=== PATIENT | male | born 1935 | race Hispanic/Latino ===

== ENCOUNTER 2019-05-03 12:18 | Outpatient (CLI) | payer MEDICARE, MEDICAID ==
--- NOTE | 2019-05-03 13:36 | MRI ---
MRI Cervical Spine WO Con History: Bilateral hand numbness. 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 No cervical adenopathy. No marrow infiltrative process. Cerebellar tonsils terminate at level of the foramen magnum. Cord signal is normal. Prevertebral soft tissues are normal. Levels are as follows: C2/C3: Mild is a process hypertrophy. Mild right facet arthrosis. No neural foraminal or spinal canal narrowing. C3/C4: Mild disc desiccation. Small bilateral subforaminal posterior disc osteophyte complexes. Mild facet arthropathy. Moderate left and mild right neural foraminal narrowing. C4/C5: Moderate degenerative disc space height loss. Circumferential disc bulge greatest in the right lateral recess and subforaminal zone. Uncinate process hypertrophy. There is effacement of the ventral CSF space with the spinal canal measuring approximate the 9 mm. Moderate right and mild left neural foraminal narrowing. C5/C6: There is degenerative disc space height loss. There is 2 mm retrolisthesis. Mild facet arthrop athy. Circumferential disc bulge. Spinal canal measures approximately 9 mm. Moderate bilateral neural foraminal narrowing. C6/C7: Circumferential disc bulge. Mild facet arthrosis. Effacement of ventral CSF space. Spinal waldo l measures approximately 9 mm. Moderate left and mild right neural foraminal narrowing. C7/T1: Mild degenerative anterior disc space height loss. Mild facet arthropathy. No neural foraminal or spinal canal narrowing. Impression: Moderate degenerative disease as described with multilevel neural foraminal and spinal ca nal narrowing.
== END 2019-05-03 12:19 | disposition home or self-care (01) ==
LOC: MRI 12:18
PROVIDERS: ATTEND Neurological Surgery
DX: M47.12 Other spondylosis with myelopathy, cervical region (principal); M48.02 Spinal stenosis, cervical region
CPT/HCPCS: 72141

== ENCOUNTER 2019-06-20 05:51 | Day surgery (SDC) | payer MEDICARE, MEDICAID ==
[2019-06-19 15:28] VITALS: BMI 35.3
[2019-06-20] MEDS ORDERED: ceFAZolin Sodium (SDC) 2 GM/100 ML BAG ONE (06:10)
[2019-06-20 07:04] LABS: #Basophils 0.1 thou/uL (0.0-0.2); #Eosinphils 0.6 thou/uL (0.0-0.7); #Lymphocytes 1.4 thou/uL (1.20-3.40); #Monocytes 0.6 thou/uL (0.11-0.59); #Neutrophils 7.1 thou/uL (1.40-6.50); %Basophils 0.7 % (0.0-1.0); %Eosinophils 6.3 % (0.0-10.0); %Lymphocytes 13.8 % (21.0-51.0); %Monocytes 6.2 % (0.0-10.0); %Neutrophils 73.1 % (42.0-75.0); Mean Corpuscular HGB CONC 34.2 g/dL (32.0-36.0); Mean Corpuscular Hemoglobin 31.2 pg (27.0-31.0); Mean Corpuscular Volume 91.1 fL (78.0-98.0); Mean Platelet Volume 7.7 fL (7.4-10.4); Platelet Count 240 thou/uL (130-400); RBC Distribution Width 13.6 % (11.5-14.5); Red Blood Cell (RBC) Count 4.17 mill/uL (4.70-6.10); White Blood Cell (WBC) Count 9.8 thou/uL (4.8-10.8)
[2019-06-20] MEDS ORDERED: hydrALAZINE 20 MG/ML VIAL ONE (07:06)
[2019-06-20] MEDS ORDERED: Lidocaine 1% (PF) 30 ML VIAL ONE (07:09)
[2019-06-20] MEDS ORDERED: Fentanyl 100 MCG/2 ML VIAL ONE (07:58)
--- NOTE | 2019-06-20 09:51 | OP ---
DATE OF PROCEDURE: 06/20/2019 PREOPERATIVE DIAGNOSIS: Right carpal tunnel syndrome. POSTOPERATIVE DIAGNOSIS: Right carpal tunnel syndrome. PROCEDURES PERFORMED: 1. Right open carpal tunnel release. 2. Placement of short volar splint right upper extremity. 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 ANESTHESIA: The patient had a general anesthetic. DISPOSITION: He went to recovery room in stable condition. COMPLICATIONS: No complications. INDICATIONS: This is an 83-year-old male, who has significant problems with numbness and tingling in his hands and is beginning to lose the ability to use his hands for fine manipulation. At this time, carpal tunnel syndrome was confirmed with an EMG/NCV and he opted to have surgery. DESCRIPTION OF PROCEDURE: After all appropriate consent forms were explained and signed, the patient was taken back to the operating room and at this time was given IV sedation. A well-padded tourniquet was placed on the right arm and the arm was then prepped and draped in the standard surgical fashion. The incision was then drawn out and infiltrated with plain lidocaine. Limb was exsanguinated and tourniquet taken up to 250 mmHg. At this time, using Loupe magnification, a 15 blade was used to incise down through skin. Bipolar cautery was used to coagulate any brisk venous bleeding. We then placed a small hemostat to protect the underlying median nerve and transected the transverse carpal ligament using multiple 15 blades as well as scissors. Once this was done, a small finger was inserted to palpate for any remaining bands. At this time, a moist Ray-Anna sponge was placed into the wound. Tourniquet was let down and pressure was held. Bipolar cautery used to coagulate any brisk venous bleeding. The wound was then irrigated with saline solution and we then evaluated the nerve. The nerve was found to be significantly injected, the nerve was intact, there were no masses noted, and the underlying flexor tendons were in good condition. At this time, we irrigated and dried the wound. We then placed multiple nylon stitches to close the incision. A bulky sterile hand dressing and a small volar splint were then placed. The patient was then awakened and taken to recovery in stable condition. All counts were correct at the end of the case. The patient received preoperative IV antibiotics. Job ID: [id number]
[2019-06-20] MEDS ORDERED: Ondansetron PF 4 MG/2 ML Vial ONE (17:03)
[2019-06-20] MEDS ORDERED: Dexamethasone 20 MG/5 ML VIAL ONE (17:03)
[2019-06-20] MEDS ORDERED: Labetalol HCl 100 MG/20 ML VIAL ONE (17:03)
[2019-06-20] MEDS ORDERED: PROPOFOL 200 MG/20 ML VIAL ONE (17:03)
[2019-06-20] MEDS ORDERED: ePHEDrine 50 MG/ML VIAL ONE (17:03)
[2019-06-20] MEDS ORDERED: Lidocaine 1% PF 5 ML VIAL ONE (17:03)
== END 2019-06-20 12:35 | disposition home or self-care (01) ==
LOC: SDC 05:51
PROVIDERS: ATTEND Orthopaedic Surgery
PROC: 01N50ZZ Release Median Nerve, Open Approach (ICD-10-PCS; principal; 2019-06-20)
DX: G56.01 Carpal tunnel syndrome, right upper limb (principal); G56.21 Lesion of ulnar nerve, right upper limb; I10 Essential (primary) hypertension; E78.00 Pure hypercholesterolemia, unspecified; E11.9 Type 2 diabetes mellitus without complications; M19.90 Unspecified osteoarthritis, unspecified site; Z79.899 Other long term (current) drug therapy; Z87.891 Personal history of nicotine dependence
CPT/HCPCS: 85025; J0360; J0690; J1100; J2001; J2405; J2704; J3010; J3490

== ENCOUNTER 2019-11-08 06:10 | Day surgery (SDC) | payer MEDICARE, MEDICAID ==
[2019-11-07 14:50] VITALS: BMI 32.9
[2019-11-08] MEDS ORDERED: Midazolam HCl 2 mg/2 ml Vial ONE (06:41)
[2019-11-08] MEDS ORDERED: Fentanyl 100 MCG/2 ML VIAL ONE (06:41)
[2019-11-08] MEDS ORDERED: Heparin (Artline) 1,000 ML ONE (06:41)
[2019-11-08 06:57] LABS: Prothrombin Time 13.5 SEC (12.0-14.7)
[2019-11-08 07:09] LABS: Anion Gap 10 mmol/L (10-20); BUN (Urea Nitrogen) 13 mg/dL (8.4-25.7); Calc. Creatinine Clearance 56 mL/min (70-130); Carbon Dioxide 36 mmol/L (23-31); Chloride 96 mmol/L (98-107); Estimated GFR-MDRD 55; Sodium 140 mmol/L (136-145)
[2019-11-08 07:10] LABS: ALT (SGPT) 8 U/L (8-55); AST (SGOT) 11 U/L (5-34); Albumin 3.6 g/dL (3.4-4.8); Alkaline Phosphatase 94 U/L (40-110); Bilirubin, Total 0.9 mg/dL (0.2-1.2); Calcium 9.2 mg/dL (7.8-10.44); Globulin 3.6 g/dL (2.4-3.5); Glucose 140 mg/dL (83-110); Protein, Total 7.2 g/dL (5.8-8.1)
[2019-11-08 07:13] LABS: Potassium 2.4 mmol/L (3.5-5.1)
[2019-11-08] MEDS ORDERED: Potassium Chloride 20 MEQ TAB PO SCH (07:30)
[2019-11-08] MEDS ORDERED: hydrALAZINE 20 MG/ML VIAL ONE (09:46)
[2019-11-08] MEDS ORDERED: Iopamidol 370 76% 100 ML VIAL ONE (13:12)
== END 2019-11-08 13:30 | disposition home or self-care (01) ==
LOC: SDC 06:10
PROVIDERS: ATTEND Internal Medicine Cardiovascular Disease
PROC: 4A023N7 Measurement of Cardiac Sampling and Pressure, Left Heart, Percutaneous Approach (ICD-10-PCS; principal; 2019-11-08)
PROC: B2111ZZ Fluoroscopy of Multiple Coronary Arteries using Low Osmolar Contrast (ICD-10-PCS; 2019-11-08)
DX: I25.10 Atherosclerotic heart disease of native coronary artery without angina pectoris (principal); I10 Essential (primary) hypertension; I49.5 Sick sinus syndrome; I35.1 Nonrheumatic aortic (valve) insufficiency; E11.9 Type 2 diabetes mellitus without complications; E78.5 Hyperlipidemia, unspecified; Z79.899 Other long term (current) drug therapy; Z87.891 Personal history of nicotine dependence
CPT/HCPCS: 80053; 85610; 85730; 93458; C1769; 36415; 99152; J0360; J1644; J2250; J3010; Q9967

== ENCOUNTER 2022-09-03 12:04 | Outpatient (CLI) | payer OTHER | END 2022-09-03 12:05 | disposition home or self-care (01) | LOC: DTY/OP 12:04 | PROVIDERS: ATTEND Family Medicine | DX: I12.9 Hypertensive chronic kidney disease with stage 1 through stage 4 chronic kidney disease, or unspecified chronic kidney disease (principal); E11.22 Type 2 diabetes mellitus with diabetic chronic kidney disease; N18.32 Chronic kidney disease, stage 3b; I25.10 Atherosclerotic heart disease of native coronary artery without angina pectoris; E79.0 Hyperuricemia without signs of inflammatory arthritis and tophaceous disease; M10.9 Gout, unspecified | CPT/HCPCS: 97802 ==

== ENCOUNTER 2023-02-24 17:49 | Observation (INO) | payer OTHER ==
[2023-02-24] MEDS ORDERED: Aspirin Chewable 81 MG TAB ONE (18:32)
[2023-02-24 18:49] LABS: #Basophils 0.1 thou/uL (0.0-0.2); #Eosinphils 0.3 thou/uL (0.0-0.7); #Lymphocytes 1.3 thou/uL (1.20-3.40); #Monocytes 0.6 thou/uL (0.11-0.59); #Neutrophils 6.8 thou/uL (1.40-6.50); %Basophils 0.6 % (0.0-1.0); %Eosinophils 3.2 % (0.0-10.0); %Lymphocytes 14.7 % (21.0-51.0); %Monocytes 6.5 % (0.0-10.0); %Neutrophils 75.1 % (42.0-75.0); Hemoglobin 14.6 g/dL (14.0-18.0); Mean Corpuscular HGB CONC 32.8 g/dL (32.0-36.0); Mean Corpuscular Hemoglobin 31.3 pg (27.0-31.0); Mean Corpuscular Volume 95.5 fl (78.0-98.0); Mean Platelet Volume 7.9 fL (7.4-10.4); Platelet Count 234 10x3/uL (130-400); Red Blood Cell (RBC) Count 4.67 mill/uL (4.70-6.10)
[2023-02-24 19:34] LABS: Albumin 3.7 g/dL (3.4-4.8)
[2023-02-24 19:39] LABS: Chloride 100 mmol/L (98-107); Potassium 4.2 mmol/L (3.5-5.1); Sodium 134 mmol/L (136-145)
[2023-02-24 19:51] LABS: ALT (SGPT) 14 U/L (8-55); AST (SGOT) 27 U/L (5-34); Alkaline Phosphatase 88 U/L (40-110); Anion Gap 14 mmol/L (10-20); BUN (Urea Nitrogen) 20 mg/dL (8.4-25.7); Bilirubin, Total 0.3 mg/dL (0.2-1.2); CK (CPK) 49 U/L (30-200); Calc. Creatinine Clearance 0 mL/min (70-130); Calcium 9.2 mg/dL (7.8-10.44); Carbon Dioxide 24 mmol/L (23-31); Estimated GFR 53; Globulin 4.4 g/dL (2.4-3.5); Glucose 132 mg/dL (83-110); Lipase 32 U/L (8-78); Protein, Total 8.1 g/dL (5.8-8.1)
[2023-02-24] MEDS ORDERED: Ondansetron PF 4 MG/2 ML Vial IVP PRN (21:29)
[2023-02-24] MEDS ORDERED: Calcium Carbonate 500 MG ChewTAB PO PRN (21:29)
[2023-02-24] MEDS ORDERED: Ondansetron ODT 4 MG TAB PO PRN (21:29)
[2023-02-24] MEDS ORDERED: Senokot S 8.6-50 MG TAB PO PRN (21:29)
[2023-02-24] MEDS ORDERED: Acetaminophen 325 MG TAB PO PRN (21:29)
[2023-02-24] MEDS ORDERED: hydrALAZINE 20 MG/ML VIAL SLOW IVP PRN (21:33)
[2023-02-24] MEDS ORDERED: HumaLOG 300 UNITS/3 ML VIAL SC PRN ×2 (21:42)
[2023-02-24] MEDS ORDERED: Dextrose 5% in Water 1,000 ML IV PRN (21:42)
[2023-02-24] MEDS ORDERED: Dextrose 50% Abboject 50 ML SYRINGE SLOW IVP PRN (21:42)
[2023-02-24 23:23] VITALS: BMI 35.9
[2023-02-24 23:36] LABS: Troponin I 0.014 ng/mL (< 0.028)
[2023-02-25 02:41] LABS: Hemoglobin A1c 5.9 % (4.0-6.0)
[2023-02-25 02:51] LABS: #Eosinphils 0.3 thou/uL (0.0-0.7); #Lymphocytes 1.2 thou/uL (1.20-3.40); #Monocytes 0.6 thou/uL (0.11-0.59); #Neutrophils 5.7 thou/uL (1.40-6.50); %Basophils 0.4 % (0.0-1.0); %Eosinophils 4.3 % (0.0-10.0); %Lymphocytes 15.4 % (21.0-51.0); %Neutrophils 72.9 % (42.0-75.0); Hemoglobin 13.3 g/dL (14.0-18.0); Mean Corpuscular HGB CONC 32.9 g/dL (32.0-36.0); Mean Corpuscular Hemoglobin 30.9 pg (27.0-31.0); Mean Corpuscular Volume 93.9 fl (78.0-98.0); Mean Platelet Volume 8.8 fL (7.4-10.4); Platelet Count 148 10x3/uL (130-400); RBC Distribution Width 14.1 % (11.5-14.5); White Blood Cell (WBC) Count 7.8 10x3/uL (4.8-10.8)
[2023-02-25 03:04] LABS: Troponin I Less than 0.010 ng/mL (< 0.028)
[2023-02-25 03:13] LABS: ALT (SGPT) 12 U/L (8-55); AST (SGOT) 25 U/L (5-34); Albumin 3.1 g/dL (3.4-4.8); Alkaline Phosphatase 78 U/L (40-110); Anion Gap 13 mmol/L (10-20); BUN (Urea Nitrogen) 19 mg/dL (8.4-25.7); Bilirubin, Total 0.3 mg/dL (0.2-1.2); Calc. Creatinine Clearance 53 mL/min (70-130); Calcium 8.6 mg/dL (7.8-10.44); Carbon Dioxide 22 mmol/L (23-31); Cardiac Risk 3.6 (Less than 4.5); Chloride 104 mmol/L (98-107); Cholesterol 121 mg/dl (< 200 Desired); Estimated GFR 53; Globulin 3.9 g/dL (2.4-3.5); Glucose 131 mg/dL (83-110); HDL Cholesterol 34 mg/dL (>60 Neg Risk); LDL Cholesterol, Calculated 74 mg/dL; Sodium 135 mmol/L (136-145); Triglycerides 63 mg/dL (Less than 150)
[2023-02-25] MEDS ORDERED: Aspirin 81 mg Enteric Coated Tablet PO SCH (09:00)
[2023-02-25] MEDS ORDERED: Famotidine 20 MG TAB PO SCH (09:00)
[2023-02-25] MEDS ORDERED: Pantoprazole 40 MG GRANULES PACKET PO SCH (09:00)
[2023-02-25] MEDS ORDERED: hydrALAZINE 25 MG TAB PO SCH (09:00)
[2023-02-25] MEDS ORDERED: Oxybutynin ER 5 MG TAB PO SCH (09:00)
[2023-02-25] MEDS ORDERED: Atorvastatin Calcium 10 MG TAB PO SCH (09:00)
[2023-02-25] MEDS ORDERED: Furosemide 20 MG/2 ML VIAL SLOW IVP SCH (09:00)
[2023-02-25 13:03] LABS: SARS-CoV-2 NAA Rapid Test DETECTED (NotDetected)
[2023-02-25 15:29] VITALS: BP 142/76; TEMP 98.5
== END 2023-02-25 19:45 | disposition home or self-care (01) ==
LOC: ERS 17:49 → SUATTDRO 17:49 → 2SW 21:34
PROVIDERS: ADMIT Internal Medicine; ATTEND Internal Medicine
DX: R07.89 Other chest pain (principal); R06.09 Other forms of dyspnea; I12.9 Hypertensive chronic kidney disease with stage 1 through stage 4 chronic kidney disease, or unspecified chronic kidney disease; E11.22 Type 2 diabetes mellitus with diabetic chronic kidney disease; N18.9 Chronic kidney disease, unspecified; E78.5 Hyperlipidemia, unspecified; I25.10 Atherosclerotic heart disease of native coronary artery without angina pectoris; I49.5 Sick sinus syndrome; U07.1 COVID-19; M19.90 Unspecified osteoarthritis, unspecified site; I08.1 Rheumatic disorders of both mitral and tricuspid valves; N40.1 Benign prostatic hyperplasia with lower urinary tract symptoms; R39.15 Urgency of urination; R35.0 Frequency of micturition; Z87.11 Personal history of peptic ulcer disease; Z87.891 Personal history of nicotine dependence; Z79.84 Long term (current) use of oral hypoglycemic drugs; Z79.899 Other long term (current) drug therapy; Z95.0 Presence of cardiac pacemaker
CPT/HCPCS: 71045; 80053 ×2; 80061; 82550; 82962 ×2; 83036; 83690; 83880; 84484 ×3; 85025 ×2; 87040; 87086; 87633; 93005; 93306; 99285; U0002; 36415; 36416; 96372; 96374; G0378; J1650; J1940

== ENCOUNTER 2023-03-25 15:17 | Outpatient (CLI) | payer OTHER | END 2023-03-25 15:18 | disposition home or self-care (01) | LOC: CT 15:17 | PROVIDERS: ATTEND Internal Medicine Cardiovascular Disease | DX: I71.21 Aneurysm of the ascending aorta, without rupture (principal); I70.0 Atherosclerosis of aorta; J84.10 Pulmonary fibrosis, unspecified; R91.8 Other nonspecific abnormal finding of lung field | CPT/HCPCS: 71250 ==

== ENCOUNTER 2023-10-10 18:13 | Inpatient (IN) | payer OTHER ==
[~2023-10-10 18:13] MED LIST: Iopamidol-370 76% 500 ML MDV (1 ML CHARGE) ONE
[2023-10-10 18:39] LABS: #Eosinphils 0.2 thou/uL (0.0-0.7); #Monocytes 0.7 thou/uL (0.11-0.59); #Neutrophils 8.7 thou/uL (1.40-6.50); %Basophils 0.3 % (0.0-1.0); %Eosinophils 1.8 % (0.0-10.0); %Lymphocytes 11.8 % (21.0-51.0); %Neutrophils 79.6 % (42.0-75.0); Hematocrit 38.5 % (42.0-52.0); Mean Corpuscular HGB CONC 33.8 g/dL (32.0-36.0); Mean Corpuscular Hemoglobin 30.8 pg (27.0-31.0); Mean Corpuscular Volume 91.2 fl (78.0-98.0); Mean Platelet Volume 10.2 fL (7.4-10.4); Platelet Count 243 10x3/uL (130-400); RBC Distribution Width 16.3 % (11.5-14.5); Red Blood Cell (RBC) Count 4.22 mill/uL (4.70-6.10)
[2023-10-10] MEDS ORDERED: Nitroglycerin 0.4 MG TAB 1 EACH ONE (18:41)
[2023-10-10] MEDS ORDERED: Nitroglycerin 2% Ointment 1 INCH/1 GM Packet ONE (18:42)
[2023-10-10] MEDS ORDERED: Aspirin 325 MG TAB ONE (18:43)
[2023-10-10 18:59] LABS: INR-International Normal Ratio 1.3; Prothrombin Time 16.2 sec (12.0-14.7)
[2023-10-10 19:00] LABS: PTT 30.9 sec (22.9-36.1)
[2023-10-10 19:09] LABS: Troponin I 0.034 ng/mL (< 0.028)
[2023-10-10 19:12] LABS: ALT (SGPT) 15 U/L (8-55); AST (SGOT) 19 U/L (5-34); Albumin 3.8 g/dL (3.4-4.8); Alkaline Phosphatase 91 U/L (40-110); Anion Gap 15 mmol/L (10-20); BUN (Urea Nitrogen) 18 mg/dL (8.4-25.7); Bilirubin, Total 1.1 mg/dL (0.2-1.2); Calc. Creatinine Clearance 0 mL/min (70-130); Calcium 8.5 mg/dL (7.8-10.44); Carbon Dioxide 30 mmol/L (23-31); Chloride 102 mmol/L (98-107); Estimated GFR 42; Globulin 3.2 g/dL (2.4-3.5); Glucose 97 mg/dL (83-110); Lipase 23 U/L (8-78); Magnesium 1.8 mg/dL (1.6-2.6); Potassium 2.9 mmol/L (3.5-5.1); Sodium 144 mmol/L (136-145)
[2023-10-10 19:58] LABS: Bacteria/HPF None Seen HPF (None Seen); Bilirubin Negative (Negative); Blood, Urine Negative (Negative); CAUTI Indications for Culture Pelvic or flank pain; Clarity Clear (Clear); Glucose, Urine (Dipstick) Normal (Negative); Ketone, Urine Negative (Negative); Leukocyte Negative Leu/uL (Negative); Nitrite Negative (Negative); Protein, Urine (Dipstick) 50 mg/dL (Neg-Trace); RBC/HPF 0-3 HPF (0-3); Specific Gravity, Urine 1.016 (1.002-1.036); Squamous Epithelial None Seen HPF (0-3); Urobilinogen Normal mg/dL (Less than 2); WBC/HPF 0-3 HPF (0-3); pH, Urine 6.5 (5.0-9.0)
[2023-10-10 20:01] LABS: Urine Culture Reflex No No
[2023-10-10 20:22] LABS: SARS-CoV-2 NAA Rapid Test Not Detected (NotDetected)
[2023-10-10] MEDS ORDERED: Potassium Chloride 20 MEQ TAB ONE (21:17)
[2023-10-10] MEDS ORDERED: Ipratropium/Albuterol 3 ML NEB EZPAP PRN (21:33)
[2023-10-10] MEDS ORDERED: Ondansetron PF 4 MG/2 ML Vial IVP PRN (21:34)
[2023-10-10] MEDS ORDERED: Acetaminophen 325 MG TAB PO PRN (21:34)
[2023-10-10] MEDS ORDERED: Dextrose 50% Abboject 50 ML SYRINGE SLOW IVP PRN (21:37)
[2023-10-10] MEDS ORDERED: Glucagon 1 MG/ML KIT IM PRN (21:37)
[2023-10-10] MEDS ORDERED: Dextrose 5% in Water 1,000 ML IV PRN (21:37)
[2023-10-10] MEDS ORDERED: Furosemide 20 MG/2 ML VIAL SLOW IVP SCH (21:45)
[2023-10-10 22:54] LABS: Troponin I 0.053 ng/mL (< 0.028)
[2023-10-11] MEDS ORDERED: Furosemide 20 MG/2 ML VIAL ONE ×2 (00:03→06:21)
[2023-10-11 01:31] LABS: Troponin I 0.047 ng/mL (< 0.028)
[2023-10-11 06:12] LABS: Anion Gap 11 mmol/L (10-20); BUN (Urea Nitrogen) 16 mg/dL (8.4-25.7); Calc. Creatinine Clearance 51 mL/min (70-130); Calcium 7.8 mg/dL (7.8-10.44); Carbon Dioxide 29 mmol/L (23-31); Chloride 104 mmol/L (98-107); Estimated GFR 50; Glucose 88 mg/dL (83-110); Magnesium 1.7 mg/dL (1.6-2.6); Potassium 2.7 mmol/L (3.5-5.1); Sodium 141 mmol/L (136-145)
[2023-10-11] MEDS: Furosemide 20 MG/2 ML VIAL SLOW IVP SCH ×2 (06:20→16:13)
[2023-10-11 06:35] LABS: #Eosinphils 0.3 thou/uL (0.0-0.7); #Monocytes 0.6 thou/uL (0.11-0.59); #Neutrophils 6.2 thou/uL (1.40-6.50); %Basophils 0.5 % (0.0-1.0); %Eosinophils 3.2 % (0.0-10.0); %Monocytes 7.1 % (0.0-10.0); %Neutrophils 75.6 % (42.0-75.0); Hematocrit 33.2 % (42.0-52.0); Mean Corpuscular HGB CONC 33.1 g/dL (32.0-36.0); Mean Corpuscular Hemoglobin 30.6 pg (27.0-31.0); Mean Corpuscular Volume 92.5 fl (78.0-98.0); Mean Platelet Volume 10.6 fL (7.4-10.4); Platelet Count 203 10x3/uL (130-400); RBC Distribution Width 16.4 % (11.5-14.5); Red Blood Cell (RBC) Count 3.59 mill/uL (4.70-6.10); White Blood Cell (WBC) Count 8.2 10x3/uL (4.8-10.8)
[2023-10-11] MEDS ORDERED: hydrALAZINE 25 MG TAB ONE (08:52)
[2023-10-11] MEDS ORDERED: Apixaban 5 MG TAB PO SCH (09:00)
[2023-10-11] MEDS ORDERED: Potassium Chloride 20 MEQ TAB ONE (09:25)
[2023-10-11] MEDS: hydrALAZINE 25 MG TAB PO SCH ×3 (09:27→21:38)
[2023-10-11] MEDS: Potassium Chloride 20 MEQ TAB PO SCH ×3 (09:28→16:26)
[2023-10-11] MEDS ORDERED: Labetalol HCl 100 MG/20 ML VIAL ONE (11:54)
[2023-10-11] MEDS: Labetalol HCl 100 MG/20 ML VIAL SLOW IVP PRN (12:05)
[2023-10-11 20:47] LABS: Campy jejuni + coli by PCR Negative (Negative); STEC Shiga Toxin 1+2 Negative (Negative); Salmonella spp. by PCR Negative (Negative); Shigella spp + EIEC by PCR Negative (Negative)
[2023-10-11] MEDS: hydrALAZINE 20 MG/ML VIAL SLOW IVP PRN (21:37)
[2023-10-11] MEDS: Apixaban 5 MG TAB PO SCH (21:38)
[2023-10-11] MEDS: Atorvastatin Calcium 10 MG TAB PO SCH (21:40)
[2023-10-12] MEDS: Labetalol HCl 100 MG/20 ML VIAL SLOW IVP PRN ×2 (00:01→04:53)
[2023-10-12] MEDS: hydrALAZINE 20 MG/ML VIAL SLOW IVP PRN ×2 (03:25→17:37)
[2023-10-12 05:27] LABS: #Basophils 0.1 thou/uL (0.0-0.2); #Eosinphils 0.4 thou/uL (0.0-0.7); #Monocytes 0.6 thou/uL (0.11-0.59); %Basophils 0.7 % (0.0-1.0); %Eosinophils 4.1 % (0.0-10.0); %Lymphocytes 10.9 % (21.0-51.0); %Monocytes 6.4 % (0.0-10.0); %Neutrophils 77.5 % (42.0-75.0); Hematocrit 36.8 % (42.0-52.0); Hemoglobin 12.2 g/dL (14.0-18.0); Mean Corpuscular HGB CONC 33.2 g/dL (32.0-36.0); Mean Corpuscular Hemoglobin 30.1 pg (27.0-31.0); Mean Corpuscular Volume 90.9 fl (78.0-98.0); Mean Platelet Volume 10.4 fL (7.4-10.4); Platelet Count 228 10x3/uL (130-400); RBC Distribution Width 16.2 % (11.5-14.5); Red Blood Cell (RBC) Count 4.05 mill/uL (4.70-6.10)
[2023-10-12 06:00] LABS: Anion Gap 15 mmol/L (10-20); BUN (Urea Nitrogen) 16 mg/dL (8.4-25.7); Calc. Creatinine Clearance 50 mL/min (70-130); Calcium 8.2 mg/dL (7.8-10.44); Carbon Dioxide 28 mmol/L (23-31); Chloride 101 mmol/L (98-107); Estimated GFR 50; Glucose 119 mg/dL (83-110); Magnesium 1.7 mg/dL (1.6-2.6); Potassium 2.8 mmol/L (3.5-5.1); Sodium 141 mmol/L (136-145)
[2023-10-12] MEDS: Furosemide 20 MG/2 ML VIAL SLOW IVP SCH (06:03)
[2023-10-12] MEDS ORDERED: FLU VACC QS2023(65UP)/MF59C/PF 60 MCG/0.5 ML SYRINGE IM ONE (09:00)
[2023-10-12] MEDS: Apixaban 5 MG TAB PO SCH ×2 (09:51→20:29)
[2023-10-12] MEDS: hydrALAZINE 25 MG TAB PO SCH ×3 (09:51→20:29)
[2023-10-12] MEDS ORDERED: Furosemide 20 MG/2 ML VIAL SLOW IVP SCH (10:57)
[2023-10-12] MEDS ORDERED: Potassium Chloride 20 MEQ TAB PO SCH (11:00)
[2023-10-12] MEDS ORDERED: Furosemide 40 MG/4 ML VIAL SLOW IVP SCH (11:15)
[2023-10-12] MEDS: Ipratropium/Albuterol 3 ML NEB NEB SCH ×3 (13:59→22:06)
[2023-10-12] MEDS: Furosemide 40 MG/4 ML VIAL SLOW IVP SCH (15:07)
[2023-10-12] MEDS: methylPREDNISolone Sod Succ 40 MG VIAL IVP SCH (17:28)
[2023-10-12] MEDS: Atorvastatin Calcium 10 MG TAB PO SCH (20:29)
[2023-10-13] MEDS: methylPREDNISolone Sod Succ 40 MG VIAL IVP SCH ×4 (00:27→19:43)
[2023-10-13] MEDS: Labetalol HCl 100 MG/20 ML VIAL SLOW IVP PRN ×2 (04:53→21:41)
[2023-10-13 05:56] LABS: Anion Gap 13 mmol/L (10-20); BUN (Urea Nitrogen) 20 mg/dL (8.4-25.7); Calc. Creatinine Clearance 43 mL/min (70-130); Calcium 8.3 mg/dL (7.8-10.44); Carbon Dioxide 32 mmol/L (23-31); Chloride 100 mmol/L (98-107); Estimated GFR 42; Glucose 144 mg/dL (83-110); Potassium 3.5 mmol/L (3.5-5.1); Sodium 141 mmol/L (136-145)
[2023-10-13] MEDS: Furosemide 40 MG/4 ML VIAL SLOW IVP SCH ×2 (06:14→15:15)
[2023-10-13] MEDS: Ipratropium/Albuterol 3 ML NEB NEB SCH ×3 (07:13→18:38)
[2023-10-13 07:16] VITALS: BMI 37.4
[2023-10-13] MEDS: hydrALAZINE 25 MG TAB PO SCH ×3 (10:52→20:14)
[2023-10-13] MEDS: Apixaban 5 MG TAB PO SCH ×2 (10:52→20:14)
[2023-10-13] MEDS ORDERED: Spironolactone 25 MG TAB PO SCH (13:15)
[2023-10-13] MEDS: Atorvastatin Calcium 10 MG TAB PO SCH (20:14)
[2023-10-14] MEDS: methylPREDNISolone Sod Succ 40 MG VIAL IVP SCH ×5 (00:29→23:56)
[2023-10-14] MEDS: Ipratropium/Albuterol 3 ML NEB NEB SCH ×4 (01:00→21:54)
[2023-10-14 08:16] LABS: #Monocytes 0.3 thou/uL (0.11-0.59); #Neutrophils 12.9 thou/uL (1.40-6.50); %Basophils 0.1 % (0.0-1.0); %Lymphocytes 3.3 % (21.0-51.0); %Neutrophils 94.1 % (42.0-75.0); Hematocrit 37.9 % (42.0-52.0); Hemoglobin 13.2 g/dL (14.0-18.0); Mean Corpuscular HGB CONC 34.8 g/dL (32.0-36.0); Mean Corpuscular Hemoglobin 31.4 pg (27.0-31.0); Mean Platelet Volume 10.6 fL (7.4-10.4); Platelet Count 282 10x3/uL (130-400); RBC Distribution Width 16.1 % (11.5-14.5); Red Blood Cell (RBC) Count 4.21 mill/uL (4.70-6.10); White Blood Cell (WBC) Count 13.7 10x3/uL (4.8-10.8)
[2023-10-14 08:39] LABS: Anion Gap 19 mmol/L (10-20); BUN (Urea Nitrogen) 30 mg/dL (8.4-25.7); Calc. Creatinine Clearance 39 mL/min (70-130); Calcium 8.9 mg/dL (7.8-10.44); Carbon Dioxide 28 mmol/L (23-31); Chloride 97 mmol/L (98-107); Estimated GFR 39; Glucose 146 mg/dL (83-110); Potassium 3.6 mmol/L (3.5-5.1); Sodium 140 mmol/L (136-145)
[2023-10-14] MEDS: Empagliflozin 10 MG TAB PO SCH (09:30)
[2023-10-14] MEDS: Apixaban 5 MG TAB PO SCH ×2 (09:30→20:17)
[2023-10-14] MEDS: hydrALAZINE 25 MG TAB PO SCH ×3 (09:30→20:17)
[2023-10-14] MEDS: Spironolactone 25 MG TAB PO SCH (09:30)
[2023-10-14] MEDS: hydrALAZINE 20 MG/ML VIAL SLOW IVP PRN (18:50)
[2023-10-14] MEDS: Atorvastatin Calcium 10 MG TAB PO SCH (20:17)
[2023-10-14] MEDS: Labetalol HCl 100 MG/20 ML VIAL SLOW IVP PRN (23:56)
[2023-10-15] MEDS: Ipratropium/Albuterol 3 ML NEB NEB SCH ×4 (01:18→18:57)
[2023-10-15 04:44] LABS: #Monocytes 0.3 thou/uL (0.11-0.59); #Neutrophils 12.9 thou/uL (1.40-6.50); %Basophils 0.1 % (0.0-1.0); %Lymphocytes 2.5 % (21.0-51.0); %Monocytes 2.3 % (0.0-10.0); %Neutrophils 94.3 % (42.0-75.0); Hematocrit 37.8 % (42.0-52.0); Hemoglobin 12.6 g/dL (14.0-18.0); Mean Corpuscular HGB CONC 33.3 g/dL (32.0-36.0); Mean Corpuscular Hemoglobin 30.4 pg (27.0-31.0); Mean Corpuscular Volume 91.1 fl (78.0-98.0); Mean Platelet Volume 10.3 fL (7.4-10.4); Platelet Count 258 10x3/uL (130-400); RBC Distribution Width 16.2 % (11.5-14.5); Red Blood Cell (RBC) Count 4.15 mill/uL (4.70-6.10); White Blood Cell (WBC) Count 13.7 10x3/uL (4.8-10.8)
[2023-10-15 05:07] LABS: Anion Gap 15 mmol/L (10-20); BUN (Urea Nitrogen) 36 mg/dL (8.4-25.7); Calc. Creatinine Clearance 36 mL/min (70-130); Calcium 8.5 mg/dL (7.8-10.44); Carbon Dioxide 28 mmol/L (23-31); Chloride 99 mmol/L (98-107); Estimated GFR 35; Glucose 175 mg/dL (83-110); Potassium 3.5 mmol/L (3.5-5.1); Sodium 138 mmol/L (136-145)
[2023-10-15] MEDS: methylPREDNISolone Sod Succ 40 MG VIAL IVP SCH ×3 (06:20→18:19)
[2023-10-15] MEDS: hydrALAZINE 25 MG TAB PO SCH ×3 (09:07→19:57)
[2023-10-15] MEDS: Spironolactone 25 MG TAB PO SCH (09:10)
[2023-10-15] MEDS: Apixaban 5 MG TAB PO SCH (09:11)
[2023-10-15] MEDS: Empagliflozin 10 MG TAB PO SCH (09:11)
[2023-10-15] MEDS ORDERED: Amlodipine 5 MG TAB PO SCH (18:45)
[2023-10-15] MEDS: Atorvastatin Calcium 10 MG TAB PO SCH (19:57)
[2023-10-15] MEDS: Apixaban 2.5 MG TAB PO SCH (19:58)
[2023-10-15] MEDS: HumaLOG 300 UNITS/3 ML VIAL SC PRN (22:27)
[2023-10-16] MEDS: methylPREDNISolone Sod Succ 40 MG VIAL IVP SCH ×4 (01:07→17:08)
[2023-10-16 04:18] LABS: #Monocytes 0.5 thou/uL (0.11-0.59); %Basophils 0.2 % (0.0-1.0); %Lymphocytes 2.6 % (21.0-51.0); %Neutrophils 92.1 % (42.0-75.0); Hemoglobin 12.5 g/dL (14.0-18.0); Mean Corpuscular HGB CONC 33.8 g/dL (32.0-36.0); Mean Corpuscular Hemoglobin 30.3 pg (27.0-31.0); Mean Corpuscular Volume 89.8 fl (78.0-98.0); Mean Platelet Volume 10.1 fL (7.4-10.4); Platelet Count 247 10x3/uL (130-400); RBC Distribution Width 15.9 % (11.5-14.5); Red Blood Cell (RBC) Count 4.12 mill/uL (4.70-6.10); White Blood Cell (WBC) Count 11.9 10x3/uL (4.8-10.8)
[2023-10-16 04:49] LABS: Anion Gap 14 mmol/L (10-20); BUN (Urea Nitrogen) 43 mg/dL (8.4-25.7); Calc. Creatinine Clearance 40 mL/min (70-130); Calcium 8.1 mg/dL (7.8-10.44); Carbon Dioxide 28 mmol/L (23-31); Chloride 98 mmol/L (98-107); Estimated GFR 39; Glucose 127 mg/dL (83-110); Potassium 3.8 mmol/L (3.5-5.1); Sodium 136 mmol/L (136-145)
[2023-10-16] MEDS: Spironolactone 25 MG TAB PO SCH (07:47)
[2023-10-16] MEDS: Apixaban 2.5 MG TAB PO SCH ×2 (07:47→20:26)
[2023-10-16] MEDS: Empagliflozin 10 MG TAB PO SCH (07:48)
[2023-10-16] MEDS: hydrALAZINE 25 MG TAB PO SCH ×3 (07:48→20:26)
[2023-10-16] MEDS: Ipratropium/Albuterol 3 ML NEB NEB SCH ×5 (07:58→23:45)
[2023-10-16] MEDS ORDERED: Amlodipine 5 MG TAB PO SCH (09:00)
[2023-10-16] MEDS ORDERED: Magnesium Citrate 300 ML BOT PO SCH (11:45)
[2023-10-16] MEDS: hydrALAZINE 20 MG/ML VIAL SLOW IVP PRN ×2 (11:49→18:28)
[2023-10-16] MEDS: HumaLOG 300 UNITS/3 ML VIAL SC PRN ×2 (13:44→23:22)
[2023-10-16] MEDS: Atorvastatin Calcium 10 MG TAB PO SCH (20:26)
[2023-10-16] MEDS: Amlodipine 5 MG TAB PO SCH (20:27)
[2023-10-17 05:20] LABS: #Monocytes 0.7 thou/uL (0.11-0.59); #Neutrophils 10.4 thou/uL (1.40-6.50); %Basophils 0.1 % (0.0-1.0); %Eosinophils 0.1 % (0.0-10.0); %Lymphocytes 3.1 % (21.0-51.0); %Monocytes 5.7 % (0.0-10.0); %Neutrophils 89.4 % (42.0-75.0); Hematocrit 36.5 % (42.0-52.0); Hemoglobin 12.5 g/dL (14.0-18.0); Mean Corpuscular HGB CONC 34.2 g/dL (32.0-36.0); Mean Corpuscular Volume 90.6 fl (78.0-98.0); Mean Platelet Volume 10.3 fL (7.4-10.4); Platelet Count 254 10x3/uL (130-400); RBC Distribution Width 15.7 % (11.5-14.5); Red Blood Cell (RBC) Count 4.03 mill/uL (4.70-6.10); White Blood Cell (WBC) Count 11.6 10x3/uL (4.8-10.8)
[2023-10-17 05:46] LABS: Anion Gap 14 mmol/L (10-20); BUN (Urea Nitrogen) 49 mg/dL (8.4-25.7); Calc. Creatinine Clearance 41 mL/min (70-130); Calcium 8.1 mg/dL (7.8-10.44); Carbon Dioxide 29 mmol/L (23-31); Chloride 95 mmol/L (98-107); Estimated GFR 41; Glucose 149 mg/dL (83-110); Potassium 3.5 mmol/L (3.5-5.1); Sodium 134 mmol/L (136-145)
[2023-10-17] MEDS: Ipratropium/Albuterol 3 ML NEB NEB SCH ×3 (06:21→18:23)
[2023-10-17] MEDS: predniSONE 20 MG TAB PO SCH (09:03)
[2023-10-17] MEDS: hydrALAZINE 25 MG TAB PO SCH ×3 (09:03→21:16)
[2023-10-17] MEDS: Spironolactone 25 MG TAB PO SCH (09:04)
[2023-10-17] MEDS: Apixaban 2.5 MG TAB PO SCH ×2 (09:04→21:15)
[2023-10-17] MEDS: Empagliflozin 10 MG TAB PO SCH (09:04)
[2023-10-17] MEDS: Amlodipine 5 MG TAB PO SCH ×2 (09:04→21:15)
[2023-10-17] MEDS: HumaLOG 300 UNITS/3 ML VIAL SC PRN ×2 (11:58→21:17)
[2023-10-17] MEDS: hydrALAZINE 20 MG/ML VIAL SLOW IVP PRN (12:01)
[2023-10-17] MEDS: Atorvastatin Calcium 10 MG TAB PO SCH (21:15)
[2023-10-18] MEDS: Ipratropium/Albuterol 3 ML NEB NEB SCH ×3 (00:30→12:52)
[2023-10-18] MEDS: Amlodipine 5 MG TAB PO SCH (08:20)
[2023-10-18] MEDS: hydrALAZINE 25 MG TAB PO SCH (08:20)
[2023-10-18] MEDS: Empagliflozin 10 MG TAB PO SCH (08:20)
[2023-10-18] MEDS: predniSONE 20 MG TAB PO SCH (08:20)
[2023-10-18] MEDS: Spironolactone 25 MG TAB PO SCH (08:20)
[2023-10-18] MEDS: Apixaban 2.5 MG TAB PO SCH (08:21)
[2023-10-18 12:03] VITALS: BP 165/105; TEMP 98.1
== END 2023-10-18 16:50 | disposition home or self-care (01) | DRG 291 ==
LOC: ERS 18:13 → ERHOLD 21:05 → 2SW 10-11 14:11 → OBSVTOIN 10-11 16:12
PROVIDERS: ADMIT Internal Medicine; ATTEND Internal Medicine
DX: I13.0 Hypertensive heart and chronic kidney disease with heart failure and stage 1 through stage 4 chronic kidney disease, or unspecified chronic kidney disease (principal); I50.33 Acute on chronic diastolic (congestive) heart failure; I48.92 Unspecified atrial flutter; N17.9 Acute kidney failure, unspecified; E11.22 Type 2 diabetes mellitus with diabetic chronic kidney disease; G47.33 Obstructive sleep apnea (adult) (pediatric); E78.5 Hyperlipidemia, unspecified; R59.0 Localized enlarged lymph nodes; E87.6 Hypokalemia; R91.1 Solitary pulmonary nodule; N18.30 Chronic kidney disease, stage 3 unspecified; J45.909 Unspecified asthma, uncomplicated; Z79.899 Other long term (current) drug therapy; Z79.82 Long term (current) use of aspirin; Z79.84 Long term (current) use of oral hypoglycemic drugs; Z95.0 Presence of cardiac pacemaker; Z98.890 Other specified postprocedural states; Z87.891 Personal history of nicotine dependence; Z11.52 Encounter for screening for COVID-19
CPT/HCPCS: 36415; 36416; 70450; 71045; 71275; 80048; 80053; 81001; 83690; 83735; 83880; 84484; 85025; 85610; 85730; 87324; 87449; 87505; 93005; 93306; 94640; 96374; 96375; 96376; 97139; G0378; J0360; J1815; J1940; J2405; J2920; J7512; J7620; Q9967

== ENCOUNTER 2023-11-01 17:49 | Inpatient (IN) | payer OTHER, MEDICAID ==
[2023-11-01 18:26] LABS: Bacteria/HPF None Seen HPF (None Seen); Bilirubin Negative (Negative); Blood, Urine Negative (Negative); CAUTI Indications for Culture Fever or rigors; Clarity Clear (Clear); Glucose, Urine (Dipstick) >=1000 mg/dL (Negative); Ketone, Urine Negative (Negative); Leukocyte Negative Leu/uL (Negative); Nitrite Negative (Negative); Protein, Urine (Dipstick) Negative (Neg-Trace); RBC/HPF None Seen HPF (0-3); Squamous Epithelial None Seen HPF (0-3); Urobilinogen Normal mg/dL (Less than 2); WBC/HPF 0-3 HPF (0-3)
[2023-11-01 18:27] LABS: Specific Gravity, Urine 1.007 (1.002-1.036); Urine Culture Reflex No No
[2023-11-01 19:07] LABS: #Eosinphils 0.1 thou/uL (0.0-0.7); #Monocytes 0.5 thou/uL (0.11-0.59); #Neutrophils 8.6 thou/uL (1.40-6.50); %Basophils 0.3 % (0.0-1.0); %Eosinophils 1.3 % (0.0-10.0); %Lymphocytes 9.6 % (21.0-51.0); %Monocytes 4.7 % (0.0-10.0); %Neutrophils 83.5 % (42.0-75.0); Hematocrit 45.2 % (42.0-52.0); Hemoglobin 15.4 g/dL (14.0-18.0); Mean Corpuscular HGB CONC 34.1 g/dL (32.0-36.0); Mean Corpuscular Hemoglobin 31.2 pg (27.0-31.0); Mean Corpuscular Volume 91.5 fl (78.0-98.0); Mean Platelet Volume 10.8 fL (7.4-10.4); Platelet Count 126 10x3/uL (130-400); RBC Distribution Width 15.9 % (11.5-14.5); Red Blood Cell (RBC) Count 4.94 mill/uL (4.70-6.10); White Blood Cell (WBC) Count 10.3 10x3/uL (4.8-10.8)
[2023-11-01 19:09] LABS: ALT (SGPT) 17 U/L (8-55); AST (SGOT) 15 U/L (5-34); Albumin 3.4 g/dL (3.4-4.8); Alkaline Phosphatase 73 U/L (40-110); Anion Gap 15 mmol/L (10-20); BUN (Urea Nitrogen) 26 mg/dL (8.4-25.7); Bilirubin, Total 0.9 mg/dL (0.2-1.2); Calc. Creatinine Clearance 0 mL/min (70-130); Calcium 8.7 mg/dL (7.8-10.44); Carbon Dioxide 22 mmol/L (23-31); Chloride 101 mmol/L (98-107); Estimated GFR 35; Globulin 3.2 g/dL (2.4-3.5); Glucose 177 mg/dL (83-110); Protein, Total 6.6 g/dL (5.8-8.1); Sodium 134 mmol/L (136-145)
[2023-11-01 19:13] LABS: Troponin I Less than 0.010 ng/mL (< 0.028)
[2023-11-01] MEDS ORDERED: Ondansetron ODT 4 MG TAB SL PRN (21:45)
[2023-11-01] MEDS ORDERED: Ondansetron PF 4 MG/2 ML Vial IVP PRN (21:45)
[2023-11-01] MEDS ORDERED: Acetaminophen 325 MG TAB PO PRN (21:45)
[2023-11-01 22:51] VITALS: BMI 32.8
[2023-11-02] MEDS ORDERED: Acetaminophen 650 MG Suppository PR PRN (00:08)
[2023-11-02] MEDS ORDERED: Dextrose 50% Abboject 50 ML SYRINGE SLOW IVP PRN (00:08)
[2023-11-02] MEDS ORDERED: Glucagon 1 MG/ML KIT IM PRN (00:08)
[2023-11-02] MEDS ORDERED: HumaLOG 300 UNITS/3 ML VIAL SC PRN ×2 (00:08)
[2023-11-02] MEDS ORDERED: Dextrose 5% in Water 1,000 ML IV PRN (00:08)
[2023-11-02 04:19] LABS: #Eosinphils 0.3 thou/uL (0.0-0.7); #Monocytes 0.4 thou/uL (0.11-0.59); #Neutrophils 6.9 thou/uL (1.40-6.50); %Basophils 0.2 % (0.0-1.0); %Eosinophils 2.9 % (0.0-10.0); %Lymphocytes 13.8 % (21.0-51.0); %Monocytes 4.9 % (0.0-10.0); %Neutrophils 77.6 % (42.0-75.0); Hematocrit 39.3 % (42.0-52.0); Hemoglobin 13.1 g/dL (14.0-18.0); Mean Corpuscular HGB CONC 33.3 g/dL (32.0-36.0); Mean Corpuscular Hemoglobin 31.3 pg (27.0-31.0); Platelet Count 106 10x3/uL (130-400); RBC Distribution Width 15.9 % (11.5-14.5); Red Blood Cell (RBC) Count 4.18 mill/uL (4.70-6.10); White Blood Cell (WBC) Count 8.9 10x3/uL (4.8-10.8)
[2023-11-02 04:54] LABS: Anion Gap 12 mmol/L (10-20); BUN (Urea Nitrogen) 29 mg/dL (8.4-25.7); Calc. Creatinine Clearance 36 mL/min (70-130); Calcium 8.3 mg/dL (7.8-10.44); Carbon Dioxide 23 mmol/L (23-31); Chloride 103 mmol/L (98-107); Estimated GFR 38; Glucose 142 mg/dL (83-110); Potassium 3.6 mmol/L (3.5-5.1); Sodium 134 mmol/L (136-145)
[2023-11-02] MEDS: Furosemide 20 MG TAB PO SCH (08:29)
[2023-11-02] MEDS: hydrALAZINE 25 MG TAB PO SCH ×3 (08:29→20:04)
[2023-11-02] MEDS: Pantoprazole 40 MG VIAL IVP SCH (08:30)
[2023-11-02] MEDS: Apixaban 5 MG TAB PO SCH ×2 (08:30→20:04)
[2023-11-02] MEDS ORDERED: Apixaban 2.5 MG TAB PO SCH (09:00)
[2023-11-02] MEDS ORDERED: Non-Formulary Item 1 EACH (Hydralazine Hcl [Hydralazine Hcl] 100 MG Tablet) PO SCH (09:00)
[2023-11-03] MEDS: Furosemide 20 MG TAB PO SCH (09:06)
[2023-11-03] MEDS: hydrALAZINE 25 MG TAB PO SCH ×3 (09:06→21:46)
[2023-11-03] MEDS: Apixaban 5 MG TAB PO SCH ×2 (09:06→21:46)
[2023-11-03] MEDS: Pantoprazole 40 MG VIAL IVP SCH (09:07)
[2023-11-04 04:54] LABS: #Eosinphils 0.3 thou/uL (0.0-0.7); #Monocytes 0.4 thou/uL (0.11-0.59); #Neutrophils 5.1 thou/uL (1.40-6.50); %Basophils 0.3 % (0.0-1.0); %Eosinophils 3.9 % (0.0-10.0); %Lymphocytes 13.6 % (21.0-51.0); %Monocytes 5.3 % (0.0-10.0); %Neutrophils 76.4 % (42.0-75.0); Hematocrit 36.4 % (42.0-52.0); Hemoglobin 12.1 g/dL (14.0-18.0); Mean Corpuscular HGB CONC 33.2 g/dL (32.0-36.0); Mean Corpuscular Hemoglobin 30.7 pg (27.0-31.0); Mean Corpuscular Volume 92.4 fl (78.0-98.0); Mean Platelet Volume 10.4 fL (7.4-10.4); RBC Distribution Width 15.8 % (11.5-14.5); Red Blood Cell (RBC) Count 3.94 mill/uL (4.70-6.10); White Blood Cell (WBC) Count 6.6 10x3/uL (4.8-10.8)
[2023-11-04 05:28] LABS: Anion Gap 12 mmol/L (10-20); BUN (Urea Nitrogen) 33 mg/dL (8.4-25.7); Calc. Creatinine Clearance 36 mL/min (70-130); Calcium 8.3 mg/dL (7.8-10.44); Carbon Dioxide 24 mmol/L (23-31); Chloride 105 mmol/L (98-107); Estimated GFR 38; Glucose 84 mg/dL (83-110); Potassium 3.4 mmol/L (3.5-5.1); Sodium 138 mmol/L (136-145)
[2023-11-04 05:47] LABS: Platelet Count 106 10x3/uL (130-400)
[2023-11-04] MEDS: Pantoprazole 40 MG VIAL IVP SCH (09:00)
[2023-11-04] MEDS: Furosemide 20 MG TAB PO SCH (09:00)
[2023-11-04] MEDS: hydrALAZINE 25 MG TAB PO SCH ×2 (09:00→15:59)
[2023-11-04] MEDS ORDERED: Apixaban 2.5 MG TAB PO SCH (09:00)
[2023-11-04 12:45] VITALS: BP 125/60; TEMP 98
[2023-11-04] MEDS ORDERED: Potassium Chloride 20 MEQ TAB PO SCH (14:45)
== END 2023-11-04 18:18 | disposition home or self-care (01) | DRG 552 ==
LOC: ERS 17:49 → 2NO 21:32 → OBSVTOIN 11-03 08:46
PROVIDERS: ADMIT Student in an Organized Health Care Education/Training Program; ATTEND Internal Medicine
DX: M47.812 Spondylosis without myelopathy or radiculopathy, cervical region (principal); I48.19 Other persistent atrial fibrillation; N17.9 Acute kidney failure, unspecified; I12.9 Hypertensive chronic kidney disease with stage 1 through stage 4 chronic kidney disease, or unspecified chronic kidney disease; E11.22 Type 2 diabetes mellitus with diabetic chronic kidney disease; Z79.899 Other long term (current) drug therapy; Z79.84 Long term (current) use of oral hypoglycemic drugs; Z79.01 Long term (current) use of anticoagulants; I49.5 Sick sinus syndrome; Z95.0 Presence of cardiac pacemaker; I25.10 Atherosclerotic heart disease of native coronary artery without angina pectoris; Z98.890 Other specified postprocedural states; Z95.5 Presence of coronary angioplasty implant and graft; E78.5 Hyperlipidemia, unspecified; N40.0 Benign prostatic hyperplasia without lower urinary tract symptoms; N18.30 Chronic kidney disease, stage 3 unspecified
CPT/HCPCS: 36415; 36416; 70450; 70551; 71045; 71046; 72141; 80048; 80053; 81001; 83880; 84484; 85025; 93005; 94760; 96374; C9113; G0378

== ENCOUNTER 2023-11-09 17:00 | Outpatient (CLI) | payer OTHER, MEDICAID | END 2023-11-09 17:01 | disposition home or self-care (01) | LOC: SLEEPLAB 17:00 | PROVIDERS: ATTEND Family Medicine | DX: G47.33 Obstructive sleep apnea (adult) (pediatric) (principal); E11.9 Type 2 diabetes mellitus without complications; I50.22 Chronic systolic (congestive) heart failure; I11.0 Hypertensive heart disease with heart failure; R53.83 Other fatigue | CPT/HCPCS: 95800 ==

== ENCOUNTER 2024-08-22 10:53 | Inpatient (IN) | payer OTHER ==
[2024-08-22 11:38] LABS: #Basophils 0.04 10x3/uL (0.0-0.2); %Basophils 0.5 % (0.0-1.0); %Eosinophils 0.9 % (0.0-10.0); %Lymphocytes 13.4 % (21.0-51.0); %Monocytes 7.4 % (0.0-10.0); Hematocrit 37.6 % (42.0-52.0); Hemoglobin 12.8 g/dL (14.0-18.0); Mean Corpuscular Hemoglobin 31.2 pg (27.0-31.0); Mean Corpuscular Volume 91.7 fL (78.0-98.0); Mean Platelet Volume 9.5 fL (7.4-10.4); Platelet Count 275 10x3/uL (130-400); RBC Distribution Width 15.9 % (11.5-14.5)
[2024-08-22 11:51] LABS: ALT (SGPT) 9 U/L (8-55); AST (SGOT) 16 U/L (5-34); Albumin 3.5 g/dL (3.4-4.8); Alkaline Phosphatase 82 U/L (40-110); Anion Gap 15 mmol/L (10-20); BUN (Urea Nitrogen) 19 mg/dL (8.4-25.7); Bilirubin, Total 1.3 mg/dL (0.2-1.2); Calc. Creatinine Clearance 0 mL/min (70-130); Calcium 9.3 mg/dL (7.8-10.44); Carbon Dioxide 22 mmol/L (23-31); Chloride 102 mmol/L (98-107); Estimated GFR 28; Glucose 171 mg/dL (83-110); Lipase 29 U/L (8-78); Potassium 3.2 mmol/L (3.5-5.1); Protein, Total 7.5 g/dL (5.8-8.1); Sodium 136 mmol/L (136-145)
[2024-08-22 11:57] LABS: Troponin I 0.031 ng/mL (< 0.028)
[2024-08-22] MEDS ORDERED: cefTRIAXone (ROCEPHIN) 1 GM VIAL ONE (12:06)
[2024-08-22] MEDS ORDERED: Sodium Chloride 0.9% 100 ML ONE (12:06)
[2024-08-22 12:38] LABS: Analyzer IN Cardio ER; Base Excess 2.8 mEq/L (-2.0 to +3.0); Calcium, Ionized (venous) 1.09 mmol/L (1.16-1.32); Chloride (VBG) 99 mmol/L (98-106); Hematocrit-VBG 46 % (42.0-52.0); Hemoglobin (Hb) 15.7 g/dL (12.6-17.4); Potassium (VBG) 3.37 mmol/L (3.70-5.30); Sodium 137 mmol/L (133-146); pH (venous) 7.514 (7.32-7.43)
[2024-08-22] MEDS ORDERED: Amiodarone 150 MG/3 ML VIAL ONE ×2 (13:40→13:44)
[2024-08-22] MEDS ORDERED: Amiodarone 450 MG, Admixture Fee 1 EACH in Dextrose 5% in Water 250 ML IVPB SCH (13:45)
[2024-08-22] MEDS ORDERED: Acetaminophen 325 MG TAB PO PRN (15:22)
[2024-08-22 15:41] LABS: Lactic Acid 0.91 mmol/L (0.5-2.2)
[2024-08-22 15:45] LABS: Anion Gap 13 mmol/L (10-20); BUN (Urea Nitrogen) 19 mg/dL (8.4-25.7); Calc. Creatinine Clearance 0 mL/min (70-130); Calcium 8.3 mg/dL (7.8-10.44); Carbon Dioxide 21 mmol/L (23-31); Chloride 106 mmol/L (98-107); Estimated GFR 33; Glucose 135 mg/dL (83-110); Magnesium 2.1 mg/dL (1.6-2.6); Potassium 3.4 mmol/L (3.5-5.1); Sodium 137 mmol/L (136-145)
[2024-08-22 15:49] LABS: Troponin I 0.015 ng/mL (< 0.028)
[2024-08-22] MEDS: Potassium Chloride 10 MEQ in Premix 1 BAG IVPB SCH (17:00)
[2024-08-22] MEDS: Magnesium 2 GM/50 ML(in water) 2 GM in Premix 1 BAG IVPB SCH (17:00)
[2024-08-22] MEDS: Amiodarone 150 MG, Admixture Fee 1 EACH in Dextrose 5% in Water 100 ML IVPB SCH (17:01)
[2024-08-22] MEDS ORDERED: Magnesium 2 GM/50 ML BAG (IN WATER) ONE (17:32)
[2024-08-22 18:26] VITALS: BMI 36.9
[2024-08-22] MEDS ORDERED: Vancomycin Dose by Levels Sliding Scale (Wt 71-99) FS SCH (19:15)
[2024-08-22 20:07] LABS: Troponin I 0.025 ng/mL (< 0.028)
[2024-08-22] MEDS ORDERED: Vancomycin 1 GM in Sodium Chloride 0.9% 250 ML 250 ML IVPB SCH (21:00)
[2024-08-22] MEDS: Apixaban 2.5 MG TAB PO SCH (21:13)
[2024-08-22] MEDS: Atorvastatin Calcium 10 MG TAB PO SCH (21:13)
[2024-08-22] MEDS: Vancomycin (BATCH) 2 GM in Premix 1 BAG IVPB SCH (21:14)
[2024-08-22] MEDS: Cefepime 1 GM in Sodium Chloride 0.9% 100 ML IVPB SCH ×2 (23:49→23:50)
[2024-08-23] MEDS ORDERED: Insulin Lispro 100 UNIT/ML 10 ML VIAL SC PRN ×2 (03:40)
[2024-08-23] MEDS ORDERED: Dextrose 50% Abboject 50 ML SYRINGE SLOW IVP PRN (03:40)
[2024-08-23] MEDS ORDERED: Glucagon 1 MG/ML KIT IM PRN (03:40)
[2024-08-23] MEDS ORDERED: Dextrose 5% in Water 1,000 ML IV PRN (03:40)
[2024-08-23 04:01] LABS: #Basophils 0.03 10x3/uL (0.0-0.2); %Basophils 0.4 % (0.0-1.0); %Eosinophils 2.3 % (0.0-10.0); %Lymphocytes 12.6 % (21.0-51.0); %Monocytes 7.5 % (0.0-10.0); %Neutrophils 76.6 % (42.0-75.0); Hematocrit 32.7 % (42.0-52.0); Hemoglobin 11.1 g/dL (14.0-18.0); Mean Corpuscular HGB CONC 33.9 g/dL (32.0-36.0); Mean Corpuscular Hemoglobin 31.8 pg (27.0-31.0); Mean Corpuscular Volume 93.7 fL (78.0-98.0); Mean Platelet Volume 9.2 fL (7.4-10.4); Platelet Count 216 10x3/uL (130-400); RBC Distribution Width 16.1 % (11.5-14.5); Red Blood Cell (RBC) Count 3.49 mill/uL (4.70-6.10)
[2024-08-23 04:15] LABS: Anion Gap 11 mmol/L (10-20); BUN (Urea Nitrogen) 18 mg/dL (8.4-25.7); Calc. Creatinine Clearance 41 mL/min (70-130); Calcium 8.4 mg/dL (7.8-10.44); Carbon Dioxide 22 mmol/L (23-31); Chloride 107 mmol/L (98-107); Estimated GFR 38; Glucose 106 mg/dL (83-110); Potassium 3.2 mmol/L (3.5-5.1); Sodium 137 mmol/L (136-145)
[2024-08-23] MEDS: Potassium Chloride 20 MEQ TAB PO SCH (08:58)
[2024-08-23] MEDS: Pantoprazole DR 40 MG TAB PO SCH (08:58)
[2024-08-23] MEDS: FLU (Fluad Triv) TS24-25 (65UP)/MF59C/PF 45 MCG/0.5 ML Syringe IM ONE (08:58)
[2024-08-23] MEDS: Allopurinol 100 MG TAB PO SCH (08:58)
[2024-08-23] MEDS: Ondansetron PF 4 MG/2 ML Vial IVP PRN (11:23)
[2024-08-23] MEDS: Potassium Bicarbonate/Cit Ac 20 MEQ TAB PO SCH (11:23)
[2024-08-23 11:27] VITALS: BMI 36.9
[2024-08-23 13:50] LABS: Bacteria/HPF None Seen HPF (None Seen); Bilirubin Negative (Negative); Blood, Urine 2+ (Negative); CAUTI Indications for Culture Alt mental st,lethar; Clarity Extra Turbid (Clear); Glucose, Urine (Dipstick) Normal (Negative); Ketone, Urine 10 mg/dL (Negative); Leukocyte 500 Leu/uL (Negative); Nitrite 1+ (Negative); Protein, Urine (Dipstick) 70 mg/dL (Neg-Trace); RBC/HPF 21-50 HPF (0-3); Specific Gravity, Urine 1.011 (1.002-1.036); Squamous Epithelial 0-3 HPF (0-3); Urobilinogen Normal mg/dL (Less than 2); WBC/HPF Greater than 50 HPF (0-3)
[2024-08-23 13:55] LABS: Transitional Epithelial 0-3 HPF (None Seen)
[2024-08-23 13:56] LABS: Urine Culture Reflex Yes Yes
[2024-08-23 19:36] LABS: Vancomycin, Trough 14.5 ug/mL
[2024-08-23] MEDS: Vancomycin HCl 750 MG in Sodium Chloride 0.9% 250 ML 250 ML IVPB SCH (20:10)
[2024-08-24 04:56] LABS: Anion Gap 13 mmol/L (10-20); BUN (Urea Nitrogen) 19 mg/dL (8.4-25.7); Calc. Creatinine Clearance 35 mL/min (70-130); Carbon Dioxide 21 mmol/L (23-31); Chloride 105 mmol/L (98-107); Estimated GFR 32; Glucose 109 mg/dL (83-110); Potassium 4.2 mmol/L (3.5-5.1); Sodium 135 mmol/L (136-145)
[2024-08-24] MEDS ORDERED: Vancomycin Dose by Levels Sliding Scale (Wt 71-99) FS SCH (12:00)
[2024-08-24 20:39] LABS: Vancomycin, Trough 15.8 ug/mL
[2024-08-24] MEDS: Pantoprazole DR 40 MG TAB PO SCH (21:06)
[2024-08-24] MEDS: Vancomycin HCl 500 MG in Sodium Chloride 0.9% 100 ML IV SCH (21:46)
[2024-08-25 04:53] LABS: Anion Gap 11 mmol/L (10-20); BUN (Urea Nitrogen) 17 mg/dL (8.4-25.7); Calc. Creatinine Clearance 40 mL/min (70-130); Calcium 8.7 mg/dL (7.8-10.44); Carbon Dioxide 25 mmol/L (23-31); Chloride 105 mmol/L (98-107); Estimated GFR 36; Glucose 79 mg/dL (83-110); Sodium 137 mmol/L (136-145)
[2024-08-25] MEDS: Meropenem 1 GM in Sodium Chloride 0.9% 100 ML IVPB SCH ×2 (09:57→17:13)
[2024-08-26 07:03] LABS: Anion Gap 10 mmol/L (10-20); BUN (Urea Nitrogen) 26 mg/dL (8.4-25.7); Calc. Creatinine Clearance 41 mL/min (70-130); Calcium 8.6 mg/dL (7.8-10.44); Carbon Dioxide 25 mmol/L (23-31); Chloride 105 mmol/L (98-107); Estimated GFR 37; Glucose 77 mg/dL (83-110); Potassium 4.5 mmol/L (3.5-5.1); Sodium 135 mmol/L (136-145)
[2024-08-26 07:58] VITALS: BP 150/86; TEMP 97.7
== END 2024-08-26 12:00 | disposition home or self-care (01) | DRG 641 ==
LOC: ERS 10:53 → ERHOLD 13:29 → 2NO 17:56
PROVIDERS: ADMIT Internal Medicine; ATTEND Internal Medicine
DX: E87.6 Hypokalemia (principal); N39.0 Urinary tract infection, site not specified; I47.20 Ventricular tachycardia, unspecified; Z16.24 Resistance to multiple antibiotics; N18.4 Chronic kidney disease, stage 4 (severe); E87.20 Acidosis, unspecified; I49.5 Sick sinus syndrome; N40.0 Benign prostatic hyperplasia without lower urinary tract symptoms; I12.9 Hypertensive chronic kidney disease with stage 1 through stage 4 chronic kidney disease, or unspecified chronic kidney disease; I48.0 Paroxysmal atrial fibrillation; B96.20 Unspecified Escherichia coli [E. coli] as the cause of diseases classified elsewhere; D64.9 Anemia, unspecified; M19.90 Unspecified osteoarthritis, unspecified site; E78.5 Hyperlipidemia, unspecified; I25.10 Atherosclerotic heart disease of native coronary artery without angina pectoris; F17.290 Nicotine dependence, other tobacco product, uncomplicated; R79.89 Other specified abnormal findings of blood chemistry; Z95.0 Presence of cardiac pacemaker; Z90.79 Acquired absence of other genital organ(s); Z79.01 Long term (current) use of anticoagulants; Z79.899 Other long term (current) drug therapy; Z79.84 Long term (current) use of oral hypoglycemic drugs
CPT/HCPCS: 36415; 36416; 70450; 71046; 76770; 80048; 80053; 80202; 81001; 82805; 83605; 83690; 83735; 83880; 84484; 85025; 87040; 87077; 87086; 87186; 93005; 93010; 96361; 96365; 96366; 96375; 96376; J0282; J0692; J0696; J2185; J2405; J3370; J3475; J3480; J7050; J7070